=== PATIENT | male | born 1965 | race Caucasian/White ===

== ENCOUNTER 2016-10-23 18:47 | Observation (INO) | payer OTHER ==
[~2016-10-23] VITALS: Ht 180.3 cm; Wt 126.7 kg
[2016-10-23 20:05] LABS: RED BLOOD COUNT 5.26 M/UL (4.20-5.50); WHITE BLOOD COUNT 10.4 K/UL (4.5-11.0)
[2016-10-23 20:56] LABS: BUN/CREATININE RATIO 13 (0-10)
[2016-10-24] MEDS ORDERED: COREG 12.5MG12.5 MG PO (01:34)
[2016-10-24] MEDS ORDERED: LIPITOR TAB 1010 MG PO (01:34)
[2016-10-24] MEDS ORDERED: COUMADIN4 MG PO (01:34)
[2016-10-24] MEDS ORDERED: LISINOPRIL10 MG PO (01:35)
[2016-10-24] MEDS ORDERED: ALDACTONE25 MG PO (01:35)
[2016-10-24] MEDS ORDERED: IMDUR ER TAB 6060 MG PO (01:35)
[2016-10-24] MEDS ORDERED: LASIX20 MG PO (01:36)
[2016-10-24] MEDS ORDERED: PRILOSEC OTC20 MG PO (01:36)
[2016-10-24] MEDS ORDERED: ASPIR 8181 MG PO (19:23)
== END 2016-10-24 21:15 | disposition home or self-care (01) ==
LOC: ER1 18:47 → ZEROF 21:32 → M/S 21:32
PROVIDERS: Student in an Organized Health Care Education/Training Program; ADMIT Internal Medicine
DX: R07.9 Chest pain, unspecified (principal); I50.22 Chronic systolic (congestive) heart failure; I48.0 Paroxysmal atrial fibrillation; E11.9 Type 2 diabetes mellitus without complications; E78.5 Hyperlipidemia, unspecified; I11.0 Hypertensive heart disease with heart failure; Z79.82 Long term (current) use of aspirin; Z79.01 Long term (current) use of anticoagulants; Z79.899 Other long term (current) drug therapy; Z95.810 Presence of automatic (implantable) cardiac defibrillator; Z87.891 Personal history of nicotine dependence
CPT/HCPCS: ECHO; 36415; 71020; 78452; 80053; 80061; 82550; 82553; 82962; 83036; 83874; 84443; 84484; 85025; 85379; 85610; 85730; 93005; 93017; 93306; 96374; 99285; A9502; G0378; J1650; J2270; J2785